=== PATIENT | female | born 1960 | race Caucasian/White ===

== ENCOUNTER → 2020-09-18 | Outpatient (CLI) | payer MEDICARE, MEDICAID ==
[~2020-09-18] MED LIST: ACET1TAB55 PO; CALC250T PO; CITR500T PO; D31000TA2 PO; DEPA500T OR; DEPA500T2 OR; LINZ290C PO; LORA1TAB4 PO; LOVE1INJ SC; MILKSUS10 PO; MIRA3350 PO; NO HOME MEDS; No Historical Meds; OMEP40CA97 PO; PAIN325T OR; PROT1TAB2 OR; ROBI1LIQ9 PO; VITMTA PO; VRAY4.5C PO
--- NOTE | 2020-09-21 09:31 | REP ---
INDICATION: R59.9 PALPABLE LYMPH NODE/R AXILLA MASS. COMPARISON: None. TECHNIQUE: Real-time sonographic evaluation of right axillary region performed. FINDINGS: Several nonenlarged lymph nodes are seen in the right axillary region which appear morphologically normal. All demonstrate a fatty hilum. There is no significant cortical thickening. The largest measures 8 x 6 x 6 mm. IMPRESSION: No suspicious lymphadenopathy identified in the right axilla. Several nonenlarged lymph nodes in this region are morphologically unremarkable. <Electronically signed by Teo Gipson > 09/21/20 0956
== END ==
LOC: M WHC 16:09
PROVIDERS: ATTEND Surgery
DX: R59.9 Enlarged lymph nodes, unspecified (principal); R22.31 Localized swelling, mass and lump, right upper limb

== ENCOUNTER 2020-09-22 08:52 | Day surgery (SDC) | payer MEDICARE, MEDICAID ==
[~2020-09-22] VITALS: Ht 162.6 cm; Wt 49.0 kg
[~2020-09-22 08:52] MED LIST changes: -ACET1TAB55 PO; -CALC250T PO; -CITR500T PO; -D31000TA2 PO; +EMLA CREAM 5GM TUBE (LIDOCAINE/PRILOCAINE) TOP PRN; +LIDOCAINE 1% MDV 20ML VIAL SQ PRN; -LINZ290C PO; -LORA1TAB4 PO; -MILKSUS10 PO; -MIRA3350 PO; -OMEP40CA97 PO; -ROBI1LIQ9 PO; -VITMTA PO; -VRAY4.5C PO
[2020-09-22] MEDS ORDERED: LIDOCAINE 1% SDV 30ML VIAL As Ordered ONE (09:28)
[2020-09-22] MEDS ORDERED: BUPIVACAINE HCL 0.25% 30ML VIAL As Ordered ONE (09:28)
[2020-09-22] MEDS ORDERED: MIRA3350 PO (09:31)
[2020-09-22] MEDS ORDERED: ACET1TAB55 PO (09:31)
[2020-09-22] MEDS ORDERED: OMEP40CA97 PO (09:31)
[2020-09-22] MEDS ORDERED: D31000TA2 PO (09:31)
[2020-09-22] MEDS ORDERED: ROBI1LIQ9 PO (09:31)
[2020-09-22] MEDS ORDERED: VRAY4.5C PO (09:31)
[2020-09-22] MEDS ORDERED: CITR500T PO (09:31)
[2020-09-22] MEDS ORDERED: MILKSUS10 PO (09:31)
[2020-09-22] MEDS ORDERED: CALC250T PO (09:31)
[2020-09-22] MEDS ORDERED: LINZ290C PO (09:31)
[2020-09-22] MEDS ORDERED: LORA1TAB4 PO (09:31)
[2020-09-22] MEDS ORDERED: VITMTA PO (09:31)
[2020-09-22] MEDS ORDERED: LR 1,000 ML IV ONE (10:00)
[2020-09-22] MEDS ORDERED: KETAMINE HCL 200 MG/20 ML VIAL As Ordered ONE (10:33)
[2020-09-22] MEDS ORDERED: MIDAZOLAM INJ 2MG/2ML VIAL (J2250 PER 1MG) As Ordered ONE (10:33)
[2020-09-22] MEDS ORDERED: propofoL 200 MG/20 ML VIAL As Ordered ONE ×2 (10:33→11:04)
[2020-09-22] MEDS ORDERED: ePHEDrine SULFATE 25 MG/5 ML(5MG/ML) SYRINGE As Ordered ONE (10:36)
[2020-09-22 12:14] VITALS: BP 124/61
--- NOTE | 2020-09-22 13:46 | REP ---
INDICATION: RIGHT BREAST BIOPSY. COMPARISON: None. TECHNIQUE: Sonographic guidance. FINDINGS: Ultrasound guidance is provided the Dr. Peguero performed ultrasound-guided needle biopsy procedure 7 o'clock in the right breast with clip placement and right axillary lymph node biopsy with clip placement. IMPRESSION: Procedural imaging. <Electronically signed by Yonatan West > 09/22/20 [id number]
--- NOTE | 2020-09-27 16:19 | ROOPDOC ---
[facility] Report Of Operation Report of Operation DATE OF PROCEDURE: 09/22/20 DIAGNOSIS: right breast suspicious lesion and right axillary suspicious lesion PROCEDURE: ultrasound guided biopsy of the right breast suspicious lesion and right axillary suspicious lesion with clips placement SURGEON: Brina Peguero BLOOD LOSS: minimal COMPLICATIONS: none Local anesthetic: Local anesthetic using 1% lidocaine and 0.25 % Marcaine 50/50 mix BIOPSY OF RIGHT BREAST Hydromark clip LOT [id number] Expiration 03/2023 SHAPE : 3 Bx device: BARD [id number] x10 cm LOT [id number] Expiration 06/2023 BIOPSY of RIGHT AXILLA Hydromark clip LOT [id number] Expiration 03/2023 SHAPE: 3 Bx device: TEMNO 18G x 20 cm LOT [id number] Expiration 07/2023 Informed consent was obtained from the brother and guardian, Edwardo Mckeon, since patient has intellectual disability. This was witnessed by my nurse, Kianna Nunes RN. The most common risk and possible complications including bleeding, hematoma, bruising, infection, injury to surrounding structures were explained. Edwardo expressed understanding. Decision was made to do the procedure in the operating room under moderate sedation due to patients intellectual disability and inability to stay still and comply with instructions. Patient was taken into operating room. Smooth induction of anesthesia was completed. She was kept on the bed in the supine position with the right arm battery mechanic over the head. Appropriate time out was done stating patients name, date of , and the procedure to be performed. The right beast and axilla were prepped and draped in the usual fashion. The ultrasound was used to confirm the location of the lesion in the right breast at 7:00 and in the right axilla. Procedure was started with the Right breast biopsy. Plain Lidocaine 1% and 8.4% sodium bicarbonate 10:1 mix was used to anesthetize the skin, the biopsy site and tissues along the anticipated biopsy tract. Small skin incision was made with blade number 11. BARD Marquee 14G cannula with introducer ([id number]) was inserted through the incision and advanced under the ultrasound guidance to position immediately adjacent to the lesion. Next, the introducer was removed and BARD Marquee 14G biopsy device was places in the cannula. Pre-biopsy imaging, and post-biopsy imaging were captured. Five good core biopsies were taken at various levels of the lesion. Specimen was placed in formaldehyde, labeled with appropriate biopsy site and patients name, and sent to pathology for evaluation. Next, the biopsy device was withdrawn and a clip introducer was inserted into the biopsy site via the cannula. SHAPE 3 Hydromark clip was deployed under sonographic guidance. Post-clip placement image was captured. Manual pressure over the biopsy cavity and tract was held after the clip introducer was withdrawn. No bleeding was noted upon removal of the pressure. At this time our attention was turned toward the right axilla. The ultrasound was used to confirm the location of enlarged lymph node with cortex measuring 5 mm. Plain Lidocaine 1% and 8.4% sodium bicarbonate 10:1 mix was used to anesthetize the skin, the biopsy site and tissues along the anticipated biopsy tract. Small skin incision was made with blade number 11. Temno 18G cannula with introducer was inserted through the incision and advanced under the ultrasound guidance to position immediately adjacent to the enlarged lymph node with 5 mm cortex. Next, the introducer was removed and Temno 18G biopsy device was places in the cannula. Pre-biopsy imaging, and post-biopsy imaging were captured. Five good core biopsies were taken at various levels of the lesion. Specimen was placed in formaldehyde, labeled with appropriate biopsy site and patients name, and sent to pathology for evaluation. Next, the biopsy device and cannula were withdrawn and a clip introducer was inserted into the position immediately adjacent to the biopsied lymph node. The SHAPE 3 Hydromark clip was deployed under sonographic guidance. Post-clip placement image was captured. Manual pressure over the biopsy cavity and tract was held after the clip introducer was withdrawn. No bleeding was noted upon removal of the pressure. Patient emerged from the anesthesia without any adverse issues. She tolerated procedure well. Discharge instructions were discussed with the patients aid and she expressed understanding. Post biopsy right breast mammogram is not done as [facility] does not have mammogram available in the hospital. I called Natalie rowland, second designated guardian, and updated her about procedure. I asked Natalie Mckeon to come into office with Miguelina on next Monday ay 4 pm to discuss results of biopsy. BRINA PEGUERO DO September 27, 2020 16:19
== END 2020-09-22 12:14 | disposition home or self-care (01) ==
LOC: M SDC 08:52
PROVIDERS: ATTEND Surgery
DX: C50.911 Malignant neoplasm of unspecified site of right female breast (principal); C77.3 Secondary and unspecified malignant neoplasm of axilla and upper limb lymph nodes; M81.0 Age-related osteoporosis without current pathological fracture; F70 Mild intellectual disabilities; K44.9 Diaphragmatic hernia without obstruction or gangrene; K21.9 Gastro-esophageal reflux disease without esophagitis; F31.9 Bipolar disorder, unspecified; F32.9 Major depressive disorder, single episode, unspecified; Z88.8 Allergy status to other drugs, medicaments and biological substances
CPT/HCPCS: 19083; 38505; 87798; 88305; J2250

== ENCOUNTER → 2020-10-19 | Outpatient (CLI) | payer MEDICARE, MEDICAID ==
[~2020-10-19] MED LIST changes: +ACET1TAB55 PO; +CALC250T PO; +CITR500T PO; +D31000TA2 PO; -EMLA CREAM 5GM TUBE (LIDOCAINE/PRILOCAINE) TOP PRN; +ISOVUE-370 76% 100ML VIAL As Ordered ONE; -LIDOCAINE 1% MDV 20ML VIAL SQ PRN; +LINZ290C PO; +LORA1TAB4 PO; +MILKSUS10 PO; +MIRA3350 PO; +OMEP40CA97 PO; +ROBI1LIQ9 PO; +VITMTA PO; +VRAY4.5C PO
--- NOTE | 2020-10-19 19:35 | REP ---
INDICATION: C50.911- MAL ELIAS OF RT BREAST, EVAL FOR METS COMPARISON: None. TECHNIQUE: Standard helical technique after the intravenous administration of 100 cc Isovue 370. FINDINGS: There is no mediastinal or hilar adenopathy. There are no pleural or pericardial effusions. The imaged osseous structures are within normal limits. Evaluation of the lung sheppard shows mild biapical pleuroparenchymal scarring. There are bibasilar curvilinear densities likely fibrotic and/or subsegmental atelectatic changes. There is no significant pulmonary nodule or spiculated lesion. IMPRESSION: There is evidence of mild biapical pleuroparenchymal scarring. There are changes seen in the lung bases as described above. Since there are no priors comparison and there is a history of carcinoma, I would recommend a short interval follow-up of 3 months . consideration should also be made in the acquisition of PET-CT in the initial staging of breast carcinoma if clinically relevant. <Electronically signed by Fracisco Hurtado > 10/19/201930
--- NOTE | 2020-10-19 19:40 | REP ---
INDICATION: C50.911- MAL ELIAS OF RT BREAST, EVAL FOR METS. COMPARISON: None. TECHNIQUE: Standard helical CT after the intravenous administration of 100 cc Isovue 370. No oral bowel preparatory contrast was administered prior to the exam. This causes exam limitations. FINDINGS: There are numerable mm sized and larger low-density lesions scattered throughout the liver the largest is in the lateral segment of the left lobe, measures approximately 2.2 cm, and has higher than water density Hounsfield unit readings. Other low-density lesions are too small for precise CT characterization. No peripherally enhancing hepatic lesions are identified. The gallbladder, spleen, pancreas, adrenal glands, and kidneys are within normal limits. The abdominal aorta and para-aortic regions are within normal limits. Limited evaluation of the bowel loops show no gross abnormalities. The mesenteries are within normal limits. There is no free fluid or free air. There is no evidence of a mass or adenopathy. Bone window technique throughout the examination shows no evidence of a definite lytic or blastic osseous lesion. IMPRESSION: Multiple indeterminate hepatic lesions as described above. Pre and post gadolinium enhanced MRI should be considered for further evaluation. Additionally, since are no priors comparison a short interval follow-up CT should also be considered along with PET-CT for initial staging if clinically relevant. <Electronically signed by Fracisco Hurtado > 10/19/201935
== END ==
LOC: M RAD 18:04
PROVIDERS: ATTEND Surgery
DX: C50.911 Malignant neoplasm of unspecified site of right female breast (principal)
CPT/HCPCS: 71260; 74177; Q9967

== ENCOUNTER → 2020-10-20 | Outpatient (CLI) | payer MEDICARE, MEDICAID ==
[~2020-10-20] MED LIST changes: -ISOVUE-370 76% 100ML VIAL As Ordered ONE
--- NOTE | 2020-10-20 15:25 | RADONC.CN ---
Radiation Oncology Hx/Consult Radiation Oncology Consult Date of Service: Oct 20, 2020 Pt Identifier Miguelina Mckeon is a 60 year old female with a history of intellectual disability, who has a recently diagnosed right breast cancer [id number] ER/DE+ HER2- Grade 2. She is seen at the request of Dr. Peguero prior to mastectomy for consideration of PMRT. Diagnosis/Treatment History Oncologic History 08/25/20 Screening mammogram with right lower outer breast lesion. Same day US negative 09/08/20 Diagnostic right mammogram showing 1.1 cm spiculated lesion in the right lower outer breast @ 7:00 09/18/20 Right axillary US for palpable LN with several small normal appearing LNs 09/22/20 Biopsy showing IDC ER/DE+ HER2- Grade 2 LN+ 10/19/20 CT CAP --Multiple low attenuating liver lesions, no additional significant findings Breast history Menses @ 13 Menopausal @ ? Interval History Here with supportive long-term MOTHER HELPER Lata. Miguelina's only complaint today is a headache and discomfort in the left (not right) breast. Per Lata, Miguelina takes ativan 1 mg TID and this keeps her still and calm without too much sedation. Prior to coming to her current long-term, Miguelina was in a shelter and on more strongly sedating psychotropic meds. Past Medical History: CP Asthma Arthritis Dysphagia HPL Peptic ulcer disease Past Surgical History: Appendectomy Colonoscopy EGD Gastric biopsy Family History: Unknown Social History: Non-smoker Does not drink alcohol Allergies / Meds Allergies: Coded Allergies: sertraline (Verified Adverse Reaction, Unknown, CONFUSION, 09/22/20) Home Meds Reported Medications Magnesium Hydroxide (Milk of Magnesia) 400 Mg/5 Ml Oral.susp, 30 ML PO Q3RD PRN for CONSTIPATION 09/22/20 Acetaminophen (Acetaminophen) 325 Mg Tablet, 650 MG PO Q4HP PRN for PAIN, TAB 09/22/20 Calcium Citrate (Calcium Citrate) 250 Mg Tablet, 1 TAB PO BID, TAB 09/22/20 Cholecalciferol (Vitamin D3) (Vitamin D3) 1,000 Unit Tablet, 2000 UNITS PO DAILY, TAB 09/22/20 Polyethylene Glycol 3350 (Miralax) 119 Gm Powder, 17 GM PO DAILYPRN PRN for CONSTIPATION, #1 BOTTLE dilute in 8 ounces of water or juice 09/22/20 Methylcellulose (Citrucel) 500 Mg Tablet, 1 TBS PO TID, TAB in 8 oz water 09/22/20 Omeprazole (Omeprazole) 40 Mg Capsule.dr, 1 CAP PO DAILY, CAP 09/22/20 Multivitamins (Thera M Plus Tablet) 1 Each Tablet, 1 TAB PO DAILY, TAB 09/22/20 Linaclotide (Linzess) 290 Mcg Capsule, 1 CAP PO DAILY, CAP 09/22/20 Cariprazine HCl (Vraylar) 4.5 Mg Capsule, 1 CAP PO DAILY, CAP 09/22/20 Lorazepam (Lorazepam) 1 Mg Tablet, 1 TAB PO QID, TAB 09/22/20 Review of Systems Constitutional: Reports: ROS Unabtainable (Intellectual disability) Vital Signs Ht 64" Wt 111 lbs BMI 19 T 98 P 78 RR 18 BP 112/69 O2 99% Pain 0 Fatigue 0 General Exam: Positive: Alert, No Acute Distress Eye Exam: Positive: PERRLA, EOMI ENT EXAM: Positive: Atraumatic Neck Exam: Positive: Supple Chest Exam: Positive: Clear to auscultation Heart Exam: Positive: Rate Normal Breast Exam: Positive: Symmetric Bilaterally; Negative: Lumps or Masses Abdomen Exam: Positive: Soft Extremity Exam: Negative: Edema Skin Exam: Positive: Nl turgor and temperature Diagnostic and Laboratory Diagnostic Review Radiologic images, relevant labs and pathology reports were personally reviewed and discussed with Ms. Mckeon. Assessment and Plan Impression Ms. Mckeon is a 60 year old female with a history of intellectual disability, who has a recently diagnosed right breast cancer [id number] ER/DE+ HER2- Grade 2. She is seen at the request of Dr. Peguero prior to mastectomy for consideration of PMRT. Stage [id number] right lower outer quadrant breast cancer stage IB ER/DE+ HER2- Grade 2 Performance Status ECOG 3 Plan We had an extensive discussion with Ms. Mckeon regarding the diagnosis at hand and available therapeutic options. I note there are several hypoattenuating lesions in the liver on her recent CT. I agree that these are indeterminate, but in this context I have low concern for visceral metastatic disease with the biology of HR receptor+ cancer detected by screening mammogram. I think these could be followed expectantly or a short-term [address] abdomen may be the next best test, given MRI and PET-CT take 30 minutes-1 hour to acquire. I will mention this to Dr. Peguero. Based on her calm demeanor in clinic today I discussed with her and her nurse that I think she would be appropriate for PMRT, which should be considered on the basis of a biopsy-proven clinically-detected axillary LN. I note that the CT chest recently done on 10/19/20 displays several normal appearing LN on the right, in this context of discordant biopsy results and imaging findings, I have heightened concern that additional nodes may prove positive. I leave the extent of axillary surgery to Dr. Arevalo to define. The standard for PMRT would be 50.4 Gy in 28 fractions to the right chest wall and a lower dose to the regional lymphatics, in 28 fractions. I would use VMAT and a FFF beam in order to minimize the [id number]. If there was a compelling reason manifest around the time of planning (such as poor tolerance for the treatment position), then we could consider a more hypofractionated course of PMRT, which is under active study on several large trials, and is supported by earlier phase studies with regard to safety and near-term efficacy. I explained that in case chemotherapy is indicated RT would follow chemotherapy. If only adjuvant endocrine therapy is indicated then RT would follow surgery generally, 3-4 weeks out at minimum. She does not have a surgical date as of yet. I will reach out to Dr. Peguero regarding this. I will follow up the post-operative pathology and ensure that she has follow up with me at the optimal time to begin RT planning. We discussed the logistics of receiving radiation therapy in detail including the need for a 1-time planning session. We discussed anticipated side effects of RT including fatigue, skin reaction, and contingent upon the extent of axillary surgery--lymphedema. After discussing the risks, benefits and alternatives to radiation therapy, Ms. Mckeon was amenable to pursuing radiotherapy after surgery, and chemotherapy if indicated. All questions were answered to the patient's satisfaction. We instructed the patient that if there were any questions,concerns or changes in clinical status in the interim to contact us. Recommendations Patient is a good candidate for PMRT as discussed above Final decisions contingent upon surgical pathology Will scheduled follow up at appropriate timing post-surgery If chemotherapy is indicated, will schedule follow up near completion of chemo Billing Statement Total time of [62] minutes was spent preparing for the visit [4], obtaining HPI [6], examining the patient [3], reviewing diagnostic tests [8], discussing management options [20], coordinating care [10], and writing this note [11]. RUPESH MANUEL MD Oct 20, 2020 15:25
== END ==
LOC: M ONCR 13:16
PROVIDERS: ATTEND General Practice
DX: C50.911 Malignant neoplasm of unspecified site of right female breast (principal); G80.9 Cerebral palsy, unspecified; J45.909 Unspecified asthma, uncomplicated; M12.9 Arthropathy, unspecified; E78.5 Hyperlipidemia, unspecified; F79 Unspecified intellectual disabilities; K76.89 Other specified diseases of liver; Z88.8 Allergy status to other drugs, medicaments and biological substances

== ENCOUNTER → 2020-11-02 | Outpatient (CLI) | payer MEDICARE, MEDICAID ==
[~2020-11-02] MED LIST changes: +ALPR1TAB3 PO; +LETR2.5T2 PO; +OMEP40CA4 PO; -OMEP40CA97 PO; +OXYC-517 PO
--- NOTE | 2020-11-03 09:29 | REP ---
INDICATION: RESTAGING INVASIVE CARCINOMA OF RT BRST C50.911. COMPARISON: Comparison is made with CT study of the chest abdomen and pelvis October 19, 2020. Comparison is made with recent breast imaging.. TECHNIQUE: Fifty minutes following the intravenous injection of a 8.94 mCi dose of F-18 FDG, three-dimensional PET scintigraphy is acquired from the skull base to the proximal thighs. Triplanar noncontrast CT scanning is acquired through the same anatomic range for attenuation correction, and image registration with scan parameters optimized to minimize radiation exposure to the patient. PET scintigraphy and CT datasets were fused and displayed on a workstation with multiplanar and projection display capability. FINDINGS: Head and neck soft tissues are unremarkable. There is no abnormal hypermetabolic uptake within the lung parenchyma, mediastinum, or in either lung hilus. There is mild skeletal muscle uptake surrounding the shoulders bilaterally. The biopsy-proven right breast malignancy is seen as a small spiculated mass in the inferolateral quadrant of the right breast. There is mildly increased uptake in this nodule compared to background breast parenchymal uptake. Maximum standard uptake value is only 1.99. There is no evidence of hypermetabolic travis uptake in either axilla. No enlarged lymph nodes are seen. No abnormal internal mammary travis uptake is seen on either side. No abnormal pleural uptake is seen. In the abdomen and pelvis, there is normal hepatic, splenic, gastrointestinal, and genitourinary FDG accumulation. No abnormal uptake is seen in any of the low-density areas in the liver suggesting that these may be cysts. No abnormal skeletal uptake is seen. IMPRESSION: Minimally increased uptake in the known right breast malignancy. No other abnormal hypermetabolic uptake. <Electronically signed by Yonatan West > 11/03/20 0033
== END ==
LOC: M PLARAD 08:54
PROVIDERS: ATTEND Surgery
DX: C50.911 Malignant neoplasm of unspecified site of right female breast (principal); Z17.0 Estrogen receptor positive status [ER+]; R91.8 Other nonspecific abnormal finding of lung field; R93.2 Abnormal findings on diagnostic imaging of liver and biliary tract
CPT/HCPCS: 78815; A9552

== ENCOUNTER → 2020-11-12 | Outpatient (CLI) | LOC: M LABSMTC 09:30 | PROVIDERS: ATTEND Anesthesiology | DX: Z01.812 Encounter for preprocedural laboratory examination (principal) ==

== ENCOUNTER 2020-11-17 10:03 | Observation (INO) | payer MEDICARE, MEDICAID ==
[~2020-11-17] VITALS: Ht 162.6 cm; Wt 52.2 kg
[~2020-11-17 10:03] MED LIST changes: -ALPR1TAB3 PO; -LETR2.5T2 PO; +LIDOCAINE 1% MDV 20ML VIAL SQ PRN; +NS 1,000 ML IV SCH; -OXYC-517 PO; +ceFAZolin SOD 1 GM in D5W MINI-BAG PLUS 50 ML IV ONE
[2020-11-17] MEDS ORDERED: LR 1,000 ML IV ONE (10:55)
[2020-11-17] MEDS: HEPARIN SOD (PORCINE) 5000UNITS/ML 1ML VIAL/SYRINGE SQ ONE ×2 (11:11→13:13)
[2020-11-17] MEDS ORDERED: MIDAZOLAM INJ 2MG/2ML VIAL (J2250 PER 1MG) As Ordered ONE (11:13)
[2020-11-17] MEDS ORDERED: fentaNYL 100 MCG/2 ML INJECTION (J3010) As Ordered ONE ×2 (11:14→15:59)
[2020-11-17] MEDS ORDERED: ISOSULFAN BLUE(LYMPHAZURIN) 1% 50MG/5ML VIAL As Ordered ONE (12:06)
[2020-11-17] MEDS ORDERED: BUPIVACAINE LIPOSOME/PF 1.3% 20ML VIAL (13.3MG/ML)(EXPAREL)(C9290 PER1MG) As Ordered ONE (12:06)
[2020-11-17] MEDS ORDERED: ACETAMINOPHEN 1000MG 100ML IV BTL (OFIRMEV) (J0131 PER 10MG) As Ordered ONE (13:21)
[2020-11-17] MEDS ORDERED: LIDOCAINE 2% 100MG/5ML SDV (FOR ANES.) As Ordered ONE (13:22)
[2020-11-17] MEDS ORDERED: dexameTHASONE 4 MG/ML 1ML VIAL (J1100 PER 1MG) As Ordered ONE (13:22)
[2020-11-17] MEDS ORDERED: propofoL 200 MG/20 ML VIAL As Ordered ONE (13:22)
[2020-11-17] MEDS ORDERED: ONDANSETRON 4MG/2ML VIAL As Ordered ONE (13:22)
[2020-11-17] MEDS ORDERED: SUGAMMADEX SODIUM 500 MG/5 ML VIAL (BRIDION) As Ordered ONE (13:23)
[2020-11-17] MEDS ORDERED: KETOROLAC 60MG 2ML VIAL As Ordered ONE (13:23)
[2020-11-17] MEDS ORDERED: PHENYLEPHRINE 10MG/ML 1ML VIAL (J2370 PER 1) As Ordered ONE (13:42)
[2020-11-17] MEDS ORDERED: SEVOFLURANE INHAL SOLN 250 ML BTL As Ordered ONE (15:51)
[2020-11-17] MEDS ORDERED: LR 1,000 ML IV SCH ×2 (16:35→16:40)
[2020-11-17] MEDS ORDERED: fentaNYL 100 MCG/2 ML INJECTION (J3010) IV PRN (16:35)
[2020-11-17] MEDS ORDERED: ONDANSETRON 4MG/2ML VIAL IV PRN (16:35)
[2020-11-17] MEDS ORDERED: MEPERIDINE INJ 25 MG/ML VIAL (J2175) IV PRN (16:35)
[2020-11-17] MEDS ORDERED: oxyCODONE 5MG TAB PO PRN ×2 (16:35→16:40)
[2020-11-17] MEDS ORDERED: MORPHINE 2 MG/ML 1ML VIAL (J2270) IV PRN (16:40)
[2020-11-17] MEDS ORDERED: MIRALAX *UNIT DOSE* 17GM PACKET PO PRN (17:00)
[2020-11-17] MEDS ORDERED: MOM 30ML SUSPENSION UDC PO PRN (17:00)
--- NOTE | 2020-11-17 17:14 | HPEPDOC ---
[facility] Medical History & Physical Date of Admission Nov 17, 2020 Date of Service: Nov 17, 2020 History and Physical Chief complaint: Who presented to [facility] for an elective simple right-sided mastectomy with lymph node dissection History of present illness: Patient is a 60-year-old female who presented to [facility] for elective right-sided simple mastectomy with the breast surgeon, patient received outpatient medical management primary care provider, Dr. Wallace Stacy. Hospital service was contacted postoperatively. Patient denies any shortness breath, palpitations, nausea, vomiting, abdominal pain, diarrhea, or urinary discomfort. Patient did report some pain on her chest wall. Patient is unable to provide any significant amount of details to her history as she has intellectual disability. Information was acquired through the medical record and verification from her nursing provider at the [facility], who was present in the waiting room. Past Medical History: Intellectual disability Recent diagnosis of invasive ductal carcinoma of R breast DLP Asthma Anxiety / Depression / Bipolar disorder Bilateral cataracts Degenerative joint disease GERD Past Surgical History: Appendectomy Colonoscopy 06/2016 EGD Allergies: See below Medications: See below Family History: - Reviewed and noncontributory Social History: - No documented smoking history - Denies recent travel or sick contacts - Lives at [facility] fdc Review of Systems: Unable to obtain full review of systems as patient hasnt intellectual disability Physical exam: - Vitals: BP [119/58], HR [97], RR [18], Sat [95%NC2L], Temp [98.4F] - General: Lying in bed, Can follow simple commands / answer simple questions, Awake / Alert - HEENT: NC, AT, PERRLA - CVS: RRR, +S1S2 - Lungs: Fair air entry bilaterally, No appreciable wheezing / rales / rhonchi - Abdomen: Soft, Non-distended, Non-tender - Extremities: No lower extremity edema, No calf tenderness - Neuro: No focal motor or sensory deficit - Skin: No visible rashes Labs: See below Imaging: See below EKG: See below Assessment and Plan: Recent diagnosis of invasive ductal carcinoma of R breast - Patient follows with medical oncology, Dr. Simmons - PET scan 11/03: Minimally increased uptake in the known right breast malignancy. No other abnormal hypermetabolic uptake. - s/p right-sided simple mastectomy, lymph node dissection and reverse axillary remapping with Dr. Peguero on 11/17/2020 - Pain control, activity and diet as per surgery Intellectual disability - Patient is a resident at the [facility] - Will have bedside sitter present DLP - Currently not on any medications Chronic Asthma - No evidence of exacerbation - Currently not on any inhaled therapy Anxiety / Depression / Bipolar disorder - Will resume Ativan Bilateral cataracts Degenerative joint disease - c/w Tylenol PRN GERD - Will resume Omeprazole DVT prophylaxis - Will start Heparin (after 10 pm) Vital Signs Vital Signs Date Time Temp Pulse Resp B/P (MAP) Pulse Ox O2 Delivery O2 Flow Rate FiO2 11/17/20 17:00 98.1 86 18 106/52 (70) 94 Room Air 11/17/20 16:45 2.0 Home Medications Scheduled Calcium Citrate (Calcium Citrate) 250 Mg Tablet, 1 TAB PO BID Cariprazine HCl (Vraylar) 4.5 Mg Capsule, 1 CAP PO DAILY Cholecalciferol (Vitamin D3) (Vitamin D3) 1,000 Unit Tablet, 2,000 UNITS PO DAILY Linaclotide (Linzess) 290 Mcg Capsule, 1 CAP PO DAILY Lorazepam (Lorazepam) 1 Mg Tablet, 1 TAB PO QID Methylcellulose (Citrucel) 500 Mg Tablet, 1 TBS PO TID in 8 oz water Multivitamins (Thera M Plus Tablet) 1 Each Tablet, 1 TAB PO DAILY Omeprazole (Omeprazole) 40 Mg Capsule.dr, 1 CAP PO DAILY Scheduled PRN Acetaminophen (Acetaminophen) 325 Mg Tablet, 650 MG PO Q4HP PRN for PAIN Magnesium Hydroxide (Milk of Magnesia) 400 Mg/5 Ml Oral.susp, 30 ML PO Q3RD PRN for CONSTIPATION Polyethylene Glycol 3350 (Miralax) 119 Gm Powder, 17 GM PO DAILYPRN PRN for CONSTIPATION dilute in 8 ounces of water or juice Allergies Coded Allergies: sertraline (Verified Adverse Reaction, Unknown, CONFUSION, 09/22/20) BENY SINGER MD Nov 17, 2020 17:14
[2020-11-17 17:45] VITALS: BP 116/62
[2020-11-17] MEDS: LORazepam 1 MG TAB PO SCH ×2 (17:54→21:34)
[2020-11-17 18:45] VITALS: BP 107/53
[2020-11-17 19:54] VITALS: BP 104/53
--- NOTE | 2020-11-17 20:09 | ROOPDOC ---
[facility] Report Of Operation Report of Operation DATE OF PROCEDURE: 11/17/20 PREPROCEDURE DIAGNOSES: right breast cancer involving right axillary lymph node POSTPROCEDURE DIAGNOSES: same PROCEDURE PERFORMED: Right breast mastectomy with right axillary dissection with reverse axillary mapping, right pectoralis and serratus muscle block, right medial pectoral nerve block SURGEON: Dr Brina Peguero ANESTHESIA: general ESTIMATED BLOOD LOSS: Approximately 100 mL. COMPLICATIONS: none FINDINGS: Right breast cancer site identified and marked with double stitch, Right axillary previously biopsied and positive lymph node was identified in axillary content and confirmed with intraop radiography DESCRIPTION OF PROCEDURE: INDICATIONS: Ms. Miguelina Mckeon is a 60 year old lady with intellectual disability who was found to have suspicious right breast mass on her mammogram. On exam she also was found to have a suspicious palpable lymph node. Sonography of this lymph n ode was read as normal. Biopsy of suspicious right breast lesion and suspicious right axillary lymph node had to be done with sedation due to patients inability to follow command. Pathology of both lesions came back ad IDC, ER+VT + Her2 -. Patient underwent systemic staging. Incidentalomas were found however there were no signs of distal disease. I discussed the surgical options with the guardians. Patient was evaluated by Medical Oncology and she was presented at tumor board. She was deemed not a good candidate for neoadjuvant chemotherapy and recommendation of breast surgery with axillary dissection was suggested. After discussing this option with the guardians, decision was made to proceed with right mastectomy without reconstruction, and right axillary dissection with reverse axillary mapping. Risks and possible complications of surgical procedure including bleeding, infection, lymphedema and injury to surrounding structures were explained to the guardians. Consent was obtained over the phone from the guardian and was witnessed by my nurse. Subcutaneous heparin 5000 units was given to patient prior to start of procedure. DETAILS: Patient was taken to the operating room and placed supine on the operating room table. Pillow was placed under her knees. Foam was placed under her heels. A sign in was called stating patients name, date of and the procedure to be done. Preoperative antibiotics were infused. Smooth induction of general anesthesia was done. Patients hands were extended on arm rests. Care was taken not to over extend patients arms. Cordova catheter was placed. Sequential compression devices were placed and assured to function correctly. Patients right breast and axilla were prepped and draped in the usual fashion. The right breast possible tumor extension was marked on the skin using ultrasound guidance. Biopsy clip was noted. Appropriate time out was done and patients name, date of , and the procedure to be done were confirmed. Procedure was started with right mastectomy. Thetransverse elliptical incision incorporating skin and nipple areolar complex was made with scalpel number 15. Subcutaneous flaps were developed using electrocautery dissection. Dissection was carried toward the inframammary fold inferiorly, toward sternum medially, toward inferior aspect of clavicle superiorly and toward the axilla laterally. Breast tissue was dissected from the muscle posteriorly and pectoralis fascia was taken with the specimen. The dissection was carried all the way to the [place] making sure that axilla is not entered prematurely. Breast specimen was marked for orientation with short single stitch marking superior edge of mastectomy and long single stitch marking lateral edge of mastectomy. Double stitch was placed at the site of previously identified cancer. The specimen was weighted and weight of 225 grams was reported. The specimen was then placed in formaldehyde, and passed to pathology. Mastectomy cavity was irrigated and hemostasis was achieved. Next, our attention was turned toward the right axilla. 3 cc of isosulfan blue was injected into right upper medial arm and massaged for 5 minutes. Axilla was accessed through open mastectomy incision. Clavipectoral fascia was opened along the lateral aspect of pectoralis muscle. Intraop Ultrasound was used to regulo the location of axillary vein and location of previously biopsied lymph node. Lateral border of pectoralis muscle was cleared from the adhesions. Axillary vein was also identified marking the superior extent of the axilla. A few blue lymphatic vessels were noted along the axillary vein and an effort was made to spare those. Next thoracodorsal nerve, artery and vein were identified at the axillary vein and were traced down until they turned toward the latissimus dorsi muscle. The nerve was functional which was confirmed throughout the case. Upon medial dissection along the serratus muscle, Long thoracic nerve was identified and encircled with the vessel loop for easier identification. The nerve was functional which was confirmed throughout the case. Next, Branches of intercostal sensory nerve were identified and an attempt was made to spare as many branches as possible. At this time, with all the critical structures identified, the axillary content between those structures (axillary vein, latissimus dorsi, serratus muscle pectoralis muscle, nerve bundles) was removed and sent to pathology for evaluation. Lymph nodes from axillary level 1 and 2 were removed. Previously biopsied lymph node was also identified and excised. The axillary content, including previously biopsied lymph node, was then placed on the grid and placed in [employer]imen Imaging System. The image confirmed presence of the clip in excised specimen. The specimen was marked with patients identifiers and called the right axillary content. Entire mastectomy cavity and axillary cavity were thoroughly irrigated and adequate hemostasis was achieved. Two 15 [place] drains were placed into the mastectomy cavity and into axilla through separate stab incisions and secured at the skin with stitches. Next, pectoralis and serratus plane blocks on the right side were also done with Exparel. Medial pectoral nerve was also identified and anesthetized with the Exparel under direct vision. Deep dermal sutures were placed with 2-0 Vicryl to approximate mastectomy site edges. Dermis was closed with 3-0 Vicryl. Skin was closed with 4-0 Monocryl. Surgical glue was applied to the top of the incision. Prineo skin closing system dressing was applied next to the incision. Surgical gauze was placed over the incision and surgical bra was placed. Final instruments and sponge count were correct. Patient emerged from general anesthesia without any problems. Cordova was removed. Patient tolerated procedure well and was taken to recovery unit in stable condition. BRINA PEGUERO DO Nov 17, 2020 20:09
[2020-11-17] MEDS: HEPARIN SOD (PORCINE) 5000UNITS/ML 1ML VIAL/SYRINGE SC SCH (21:17)
[2020-11-17] MEDS: ceFAZolin SOD 1 GM in D5W MINI-BAG PLUS 50 ML IV SCH (21:18)
[2020-11-17] MEDS: ACETAMINOPHEN TAB 650MG DOSE (2X325MG) PO PRN (21:18)
[2020-11-18 02:00] VITALS: BP 101/53
[2020-11-18] MEDS: HEPARIN SOD (PORCINE) 5000UNITS/ML 1ML VIAL/SYRINGE SC SCH (05:18)
[2020-11-18] MEDS: ceFAZolin SOD 1 GM in D5W MINI-BAG PLUS 50 ML IV SCH ×2 (05:18→12:11)
[2020-11-18 06:00] VITALS: BP 98/53
[2020-11-18 07:32] LABS: BASO % 0.3 % (0.0-1.0); EOS % 0.1 % (0.0-3.0); HEMATOCRIT 33.3 % (36.0-47.0); LYMPH # 2.2 10^3/uL (1.5-5.0); MEAN CORPUSCULAR HEMOGLOBIN 30.1 pg (27.0-33.0); MEAN CORPUSCULAR VOLUME 91.2 fl (80.0-96.0); MONO # 0.6 10^3/uL (0.0-0.8); MONO % 7.7 % (2.0-8.0); NEUTROPHILS # 5.1 10^3/uL (1.5-8.5); NEUTROPHILS % 63.8 % (36.0-66.0); PLATELET COUNT, AUTOMATED 314 10^3/uL (150-450); RED BLOOD COUNT 3.65 10^6/uL (4.00-5.40)
[2020-11-18 07:52] LABS: BLOOD UREA NITROGEN 12 MG/DL (7-18); CALCIUM LEVEL 8.8 MG/DL (8.8-10.2); CARBON DIOXIDE LEVEL 30 MEQ/L (21-32); CHLORIDE LEVEL 106 MEQ/L (98-107); CREATININE FOR GFR 0.67 MG/DL (0.55-1.30); GLOMERULAR FILTRATION RATE > 60.0 (>45); GLUCOSE, FASTING 92 MG/DL (70-100); MAGNESIUM LEVEL 2.2 MG/DL (1.8-2.4); POTASSIUM SERUM 4.1 MEQ/L (3.5-5.1); SODIUM LEVEL 140 MEQ/L (136-145)
[2020-11-18] MEDS ORDERED: VITAMIN D 1,000 INTERNATIONAL UNITS TABLET PO SCH (09:00)
[2020-11-18] MEDS ORDERED: MULTIVITAMINS/MINERALS THERAP 1 TAB PO SCH (09:00)
[2020-11-18] MEDS ORDERED: OMEPRAZOLE 20 MG CAP PO SCH (09:00)
[2020-11-18] MEDS ORDERED: OXYC-517 PO (09:12)
[2020-11-18 10:00] VITALS: BP 117/67
[2020-11-18] MEDS: LORazepam 1 MG TAB PO SCH ×2 (10:14→12:11)
[2020-11-18] MEDS: ACETAMINOPHEN TAB 650MG DOSE (2X325MG) PO PRN (10:26)
--- NOTE | 2020-11-18 10:28 | DS.PDOC ---
Discharge Summary General Date of Admission Nov 17, 2020 at 10:04 Date of Discharge 11/18/2020 Discharge Summary PROCEDURES PERFORMED DURING STAY: Right breast mastectomy with right axillary dissection with reverse axillary mapping with Dr. Peguero on 11/17/2020 ADMITTING DIAGNOSES / DISCHARGE DIAGNOSES: Recent diagnosis of invasive ductal carcinoma of R breast Intellectual disability DLP Chronic Asthma Anxiety / Depression / Bipolar disorder Bilateral cataracts Degenerative joint disease GERD DVT prophylaxis COMPLICATIONS/CHIEF COMPLAINT: Right Breast Cancer HISTORY OF PRESENT ILLNESS: Patient is a 60-year-old female who presented to [facility] for elective right-sided simple mastectomy with the breast surgeon, patient received outpatient medical management primary care provider, Dr. Wallace Stacy. Hospital service was contacted postoperatively. Patient was seen and examined at the bedside this morning. Denies any headache, cough, shortness of breath, did report some pain of her chest. Denied any lower extremity pain. HOSPITAL COURSE: Recent diagnosis of invasive ductal carcinoma of R breast - Patient follows with medical oncology, Dr. Simmons - PET scan 11/03: Minimally increased uptake in the known right breast malignancy. No other abnormal hypermetabolic uptake. - s/p right-sided simple mastectomy, lymph node dissection and reverse axillary remapping with Dr. Peguero on 11/17/2020 - Pain control, activity and diet as per surgery - Will have outpatient follow up with breast surgery and medical oncology within 5-7 days. Intellectual disability - Patient is a resident at the [facility] - Will have bedside sitter present DLP - Currently not on any medications Chronic Asthma - No evidence of exacerbation - Currently not on any inhaled therapy Anxiety / Depression / Bipolar disorder - c/w Ativan Bilateral cataracts Degenerative joint disease - c/w Tylenol PRN GERD - c/w Omeprazole DVT prophylaxis - c/w Heparin DISCHARGE MEDICATIONS: Please see below. ALLERGIES: Please see below. PHYSICAL EXAMINATION ON DISCHARGE: Vitals (See below) General: Lying in bed, appears comfortable, AAOx3 HEENT: NC, AT CVS: +S1S2 Lungs: Fair air entry b/l, no wheezing / rales / rhonchi Abdomen: Soft, ND, NT Extremities: No evidence of LE edema, - Calf tenderness LABORATORY DATA: Please see below. IMAGING: None ACTIVITY: [As tolerated]. DISCHARGE PLAN: Will have outpatient follow up with PCP, General surgery and Medical Oncology within 7 days Remain complaint with treatment plan and medications Return to the ER if you experience any problems DISPOSITION: Home with services DISCHARGE CONDITION: [Stable]. TIME SPENT ON DISCHARGE: 25 minutes Vital Signs/I&Os Vital Signs Date Time Temp Pulse Resp B/P (MAP) Pulse Ox O2 Delivery O2 Flow Rate FiO2 11/18/20 06:00 97.9 57 18 98/53 (68) 97 Room Air 11/17/20 16:45 2.0 I&O- Last 24 Hours up to 6 AM 11/18/20 05:59 Intake Total 1160 ml Output Total 1025 ml Balance 135 ml Laboratory Data Labs 24H Laboratory Tests 2 11/18/20 06:22: Immature Granulocyte % (Auto) 0.1, Neutrophils (%) (Auto) 63.8, Lymphocytes (%) (Auto) 28.0, Monocytes (%) (Auto) 7.7, Eosinophils (%) (Auto) 0.1, Basophils (%) (Auto) 0.3, Neutrophils # (Auto) 5.1, Lymphocytes # (Auto) 2.2, Monocytes # (Auto) 0.6, Eosinophils # (Auto) 0.0, Basophils # (Auto) 0.0, Nucleated Red Blood Cells % (auto) 0.0, Anion Gap 4L, Glomerular Filtration Rate > 60.0, Calcium Level 8.8, Magnesium Level 2.2 CBC/BMP Laboratory Tests 11/18/20 06:22 Discharge Medications Scheduled Calcium Citrate (Calcium Citrate) 250 Mg Tablet, 1 TAB PO BID, (Reported) Cariprazine HCl (Vraylar) 4.5 Mg Capsule, 1 CAP PO DAILY, (Reported) Cholecalciferol (Vitamin D3) (Vitamin D3) 1,000 Unit Tablet, 2,000 UNITS PO DAILY, (Reported) Linaclotide (Linzess) 290 Mcg Capsule, 1 CAP PO DAILY, (Reported) Lorazepam (Lorazepam) 1 Mg Tablet, 1 TAB PO QID, (Reported) Methylcellulose (Citrucel) 500 Mg Tablet, 1 TBS PO TID, (Reported) in 8 oz water Multivitamins (Thera M Plus Tablet) 1 Each Tablet, 1 TAB PO DAILY, (Reported) Omeprazole (Omeprazole) 40 Mg Capsule.dr, 1 CAP PO DAILY, (Reported) Scheduled PRN Acetaminophen (Acetaminophen) 325 Mg Tablet, 650 MG PO Q4HP PRN for PAIN, (Reported) Magnesium Hydroxide (Milk of Magnesia) 400 Mg/5 Ml Oral.susp, 30 ML PO Q3RD PRN for CONSTIPATION, (Reported) Oxycodone HCl (Oxycodone HCl) 5 Mg Tablet, 5 MG PO Q8HP PRN for MODERATE PAIN (PS 5-7) Polyethylene Glycol 3350 (Miralax) 119 Gm Powder, 17 GM PO DAILYPRN PRN for CONSTIPATION, (Reported) dilute in 8 ounces of water or juice Allergies Coded Allergies: sertraline (Verified Adverse Reaction, Unknown, CONFUSION, 09/22/20) BENY SINGER MD Nov 18, 2020 10:28
--- NOTE | 2020-11-18 11:46 | IPNPDOC ---
Subjective General Date Seen: Nov 18, 2020 (7 am) Subject Chief Complaint/History The patient is a 60-year-old female with intellectual disability who was diagnosed with right breast cancer involving right axillary lymph node. Patient was admitted after surgery yesterday (right mastectomy, right axillary lymph node dissection, reverse axillary mapping). She recovered well for surgery. Her pain is well tolerated. She was able to void. She tolerates food. She has to drains in the right lateral chest which drained serosanguineous fluid. Current Medications Current Medications Current Medications Medications (Trade) Dose Ordered Sig/Joaquin Route PRN Reason Start Time Stop Time Status Last Admin Dose Admin Acetaminophen (Tylenol Tab) 650 mg Q6H PRN PO MILD PAIN (PS 1-4) 11/17/20 16:40 11/18/20 10:26 Cefazolin Sodium 1 gm/Dextrose 50 ml @ 100 mls/hr Q8H IV 11/17/20 21:00 11/18/20 13:29 11/18/20 05:18 Fentanyl Citrate (Sublimaze) 25 mcg Q5MP PRN IV PAIN LEVEL 5-10 11/17/20 16:35 11/17/20 18:35 DC Heparin Sodium (Porcine) (Heparin) 5,000 units Q8H SC 11/17/20 22:00 11/18/20 05:18 Lactated Ringer's 1,000 ml @ 70 mls/hr [id number] IV 11/17/20 16:40 11/17/20 17:45 Lactated Ringer's 1,000 ml @ 100 mls/hr Q10H IV 11/17/20 16:35 11/17/20 18:35 DC 11/17/20 17:31 Lidocaine HCl (LIDOCAINE 1% MDV 20ml) 0.1 ml ONCE PRN SQ DISCOMFORT BEFORE IV START 11/17/20 06:00 11/17/20 16:31 DC Lorazepam (Ativan) 1 mg QID PO 11/17/20 17:00 11/18/20 10:14 Magnesium Hydroxide (Milk Of Magnesia) 30 ml Q72H PRN PO CONSTIPATION 11/17/20 17:00 Meperidine HCl (Demerol) 12.5 mg Q5MP PRN IV SHIVERING 11/17/20 16:35 11/17/20 18:35 DC Morphine Sulfate (Morphine Sulfate Inj) 1 mg Q4H PRN IV PAIN LEVEL 8-10 11/17/20 16:40 Multivitamins (Theragram-M) 1 tab DAILY PO 11/18/20 09:00 11/18/20 10:15 Omeprazole (PriLOSEC) 40 mg DAILY PO 11/18/20 09:00 11/18/20 10:15 Ondansetron HCl (ZOFRAN INJection) 4 mg Q4HP PRN IV NAUSEA OR VOMITING 11/17/20 16:35 11/17/20 18:35 DC Oxycodone HCl (Roxicodone, Oxyir) 5 mg ASDIRECTED PRN PO PAIN LEVEL 1-4 11/17/20 16:35 11/17/20 18:35 DC Oxycodone HCl (Roxicodone, Oxyir) 5 mg Q4HP PRN PO MODERATE PAIN (PS 5-7) 11/17/20 16:40 11/17/20 18:51 Polyethylene Glycol (Miralax) 1 pkt DAILYPRN PRN PO CONSTIPATION 11/17/20 17:00 Sodium Chloride 1,000 ml @ 15 mls/hr Q24H IV 11/17/20 08:15 11/17/20 16:31 DC Vitamin D (Vitamin D) 2,000 units DAILY PO 11/18/20 09:00 11/18/20 10:15 Allergies Coded Allergies: sertraline (Verified Adverse Reaction, Unknown, CONFUSION, 09/22/20) Objective Physical Examination Examination GENERAL APPEARANCE:Patient seen, laying in bed, awake, alert, comfortable, in no acute distress BREAST: Right breast is surgically absent. Incision of the right chest wall is well approximated. There is no drainage or erythema. Prineo dressing is in place. There are 2 CATALINA drains in the lateral chest with serosanguineous fluid. Drains were stripped this morning. There is no palpable hematoma at the mastectomy site. Flaps are viable. LUNGS: Patient is breathing comfortably on room air HEART: No tachycardia ABDOMEN: Abdomen is nondistended EXTREMITIES: There is no lymphedema of the right upper extremity Vital Signs Vital Signs Date Time Temp Pulse Resp B/P (MAP) Pulse Ox O2 Delivery O2 Flow Rate FiO2 11/18/20 10:00 99.3 94 18 117/67 (84) 95 Room Air 11/17/20 16:45 2.0 I&Os I&O- Last 24 Hours up to 6 AM 11/18/20 06:00 Intake Total 1160 ml Output Total 1025 ml Balance 135 ml Laboratory Data Labs 24H Laboratory Tests 2 11/18/20 06:22: Immature Granulocyte % (Auto) 0.1, Neutrophils (%) (Auto) 63.8, Lymphocytes (%) (Auto) 28.0, Monocytes (%) (Auto) 7.7, Eosinophils (%) (Auto) 0.1, Basophils (%) (Auto) 0.3, Neutrophils # (Auto) 5.1, Lymphocytes # (Auto) 2.2, Monocytes # (Auto) 0.6, Eosinophils # (Auto) 0.0, Basophils # (Auto) 0.0, Nucleated Red Blood Cells % (auto) 0.0, Anion Gap 4L, Glomerular Filtration Rate > 60.0, Calcium Level 8.8, Magnesium Level 2.2 CBC/BMP Laboratory Tests 11/18/20 06:22 Impression 60-year-old lady with intellectual disability and right breast cancer involving lymph nodes, status post right mastectomy, right axillary dissection with reverse axillary mapping POD 1. - Pain control, will sent home with narcotic pain meds as well. Please use Tylenol first - stop IV-stop IVF - Encourage by mouth hydration - Monitor drain output, records per 24 hour her drain. Drain teaching today her nursing staff - If patient seems to be tagging on the drain or pulling the drains please wrap that chest loosely with Bony wrap. Please don't put excessive pressure over mastectomy flaps - Keep the surgical bra until postoperative appointment - No IVs, blood pressure checks, lap draws in the right upper extremity as right axillary dissection was done and patient is at risk of lymphedema - Okay to send home from the surgical point of view as long as medical team clears patient for discharge. - I greatly appreciate medical team assistance in taking care of this patient - Patient will follow up with me in the office on November 23 at 11:30 AM - Please send patient home with my postop instructions regarding mastectomy Plan / VTE VTE Prophylaxis Ordered?: Yes BRINA DENIS DO Nov 18, 2020 11:46
== END 2020-11-18 13:30 | disposition home health service (06) ==
LOC: M SDC 10:03 → M ED INP 10:04 → M MS5PR 17:40
PROVIDERS: ADMIT Internal Medicine; ATTEND Internal Medicine
DX: C50.911 Malignant neoplasm of unspecified site of right female breast (principal); C77.3 Secondary and unspecified malignant neoplasm of axilla and upper limb lymph nodes; Z17.0 Estrogen receptor positive status [ER+]; E78.2 Mixed hyperlipidemia; F79 Unspecified intellectual disabilities; Z79.899 Other long term (current) drug therapy; Z88.8 Allergy status to other drugs, medicaments and biological substances; M85.88 Other specified disorders of bone density and structure, other site; F31.9 Bipolar disorder, unspecified; F32.9 Major depressive disorder, single episode, unspecified; F41.9 Anxiety disorder, unspecified; K21.9 Gastro-esophageal reflux disease without esophagitis
CPT/HCPCS: 19303; 36415; 38525; 64450; 80048; 83735; 85025; 86850; 86900; 86901; 88305; 88309; 96365; 96366; 96372; C9290; G0378; J0131; J0690; J1100; J1644; J1885; J2250; J2370; J2405; J3010; Q9968

== ENCOUNTER 2020-12-01 13:21 | Outpatient (RCR) | payer MEDICARE, MEDICAID ==
[~2020-12-01 13:21] MED LIST changes: -LIDOCAINE 1% MDV 20ML VIAL SQ PRN; -NS 1,000 ML IV SCH; +OXYC-517 PO; -ceFAZolin SOD 1 GM in D5W MINI-BAG PLUS 50 ML IV ONE
[2020-12-25] MEDS ORDERED: LETR2.5T2 PO (12:16)
[2021-03-09] MEDS ORDERED: LETR2.5T2 PO (13:03)
[2021-06-15] MEDS ORDERED: LETR2.5T2 PO (09:07)
== END 2020-12-05 | disposition still patient (30) ==
LOC: M PT 13:21
PROVIDERS: ATTEND Surgery
DX: C50.911 Malignant neoplasm of unspecified site of right female breast (principal)

== ENCOUNTER 2020-12-28 10:18 | Outpatient (RCR) | payer MEDICARE, MEDICAID ==
[~2020-12-28 10:18] MED LIST changes: +LETR2.5T2 PO
[2020-12-28] MEDS ORDERED: ALPR1TAB3 PO ×2 (11:08→11:10)
[2021-03-09] MEDS ORDERED: LETR2.5T2 PO (13:03)
== END 2021-01-05 ==
LOC: M ONCR 10:18
PROVIDERS: ATTEND General Practice
DX: C50.511 Malignant neoplasm of lower-outer quadrant of right female breast (principal)

== ENCOUNTER → 2021-02-04 | Outpatient (RCR) | payer MEDICARE, MEDICAID ==
[~2021-02-04] MED LIST changes: +ALPR1TAB3 PO
== END ==
LOC: M ONCR 01-06 14:55
PROVIDERS: ATTEND General Practice
DX: C50.511 Malignant neoplasm of lower-outer quadrant of right female breast (principal)

== ENCOUNTER 2021-02-16 09:51 | Outpatient (RCR) | payer MEDICARE, MEDICAID ==
[2021-03-09] MEDS ORDERED: LETR2.5T2 PO (13:03)
== END 2021-03-07 ==
LOC: M ONCR 09:51
PROVIDERS: ATTEND General Practice
DX: C50.511 Malignant neoplasm of lower-outer quadrant of right female breast (principal)

== ENCOUNTER → 2021-06-07 | Outpatient (CLI) | payer MEDICARE, MEDICAID | LOC: M ONCR 13:30 | PROVIDERS: ATTEND General Practice | DX: C50.511 Malignant neoplasm of lower-outer quadrant of right female breast (principal); F79 Unspecified intellectual disabilities; Z88.1 Allergy status to other antibiotic agents; Z79.899 Other long term (current) drug therapy ==

== ENCOUNTER → 2021-08-20 | Outpatient (CLI) | payer MEDICARE, MEDICAID ==
[~2021-08-20] MED LIST changes: -D31000TA2 PO; +VITA100093 PO
== END ==
LOC: M WHC 12:59
PROVIDERS: ATTEND Surgery
DX: Z12.31 Encounter for screening mammogram for malignant neoplasm of breast (principal); Z85.3 Personal history of malignant neoplasm of breast
CPT/HCPCS: 76642; 77065; G0279

== ENCOUNTER → 2021-12-01 | Outpatient (CLI) | payer MEDICARE, MEDICAID | LOC: M ONCR 13:38 | PROVIDERS: ATTEND General Practice | DX: C50.511 Malignant neoplasm of lower-outer quadrant of right female breast (principal); F79 Unspecified intellectual disabilities; Z79.811 Long term (current) use of aromatase inhibitors; Z79.899 Other long term (current) drug therapy; Z88.8 Allergy status to other drugs, medicaments and biological substances; Z90.11 Acquired absence of right breast and nipple; Z92.3 Personal history of irradiation ==

== ENCOUNTER → 2022-10-13 | Outpatient (CLI) | payer MEDICARE, MEDICAID ==
[~2022-10-13] MED LIST changes: +LORA1TAB23 PO; -LORA1TAB4 PO
== END ==
LOC: M WHC 08:56
PROVIDERS: ATTEND Nurse Practitioner Women's Health
DX: C50.811 Malignant neoplasm of overlapping sites of right female breast (principal)

== ENCOUNTER → 2022-12-02 | Outpatient (CLI) | payer MEDICARE, MEDICAID | LOC: M ONCR 13:24 | PROVIDERS: ATTEND General Practice | DX: Z08 Encounter for follow-up examination after completed treatment for malignant neoplasm (principal); Z85.3 Personal history of malignant neoplasm of breast; F79 Unspecified intellectual disabilities; Z71.2 Person consulting for explanation of examination or test findings; Z79.811 Long term (current) use of aromatase inhibitors; Z79.899 Other long term (current) drug therapy; Z88.8 Allergy status to other drugs, medicaments and biological substances; Z90.11 Acquired absence of right breast and nipple; Z92.3 Personal history of irradiation ==

== ENCOUNTER → 2023-03-14 | Outpatient (CLI) | payer MEDICARE, MEDICAID | LOC: M WHC 09:45 | PROVIDERS: ATTEND Nurse Practitioner | DX: Z13.820 Encounter for screening for osteoporosis (principal); C50.919 Malignant neoplasm of unspecified site of unspecified female breast; M85.88 Other specified disorders of bone density and structure, other site ==

== ENCOUNTER → 2023-10-17 | Outpatient (CLI) | payer MEDICARE, MEDICAID ==
[~2023-10-17] MED LIST changes: +ENSU1LIQ PO; +SIMV20TA22
== END ==
LOC: M WHC 09:45
PROVIDERS: ATTEND Nurse Practitioner Women's Health
DX: Z12.31 Encounter for screening mammogram for malignant neoplasm of breast (principal); Z85.3 Personal history of malignant neoplasm of breast
CPT/HCPCS: 77065; G0279

== ENCOUNTER → 2023-12-11 | Outpatient (CLI) | payer MEDICARE, MEDICAID | LOC: M ONCR 09:53 | PROVIDERS: ATTEND General Practice | DX: Z08 Encounter for follow-up examination after completed treatment for malignant neoplasm (principal); Z85.3 Personal history of malignant neoplasm of breast; Z79.811 Long term (current) use of aromatase inhibitors; Z79.899 Other long term (current) drug therapy; Z88.8 Allergy status to other drugs, medicaments and biological substances; Z90.11 Acquired absence of right breast and nipple; Z92.3 Personal history of irradiation ==

== ENCOUNTER → 2024-12-10 | Outpatient (CLI) | payer MEDICARE, MEDICAID ==
[~2024-12-10] MED LIST changes: +FAMO40TA3 PO; +VRAY1.5C
== END ==
LOC: M ONCR 09:51
PROVIDERS: ATTEND General Practice
DX: Z08 Encounter for follow-up examination after completed treatment for malignant neoplasm (principal); Z85.3 Personal history of malignant neoplasm of breast; Z90.11 Acquired absence of right breast and nipple; Z92.3 Personal history of irradiation; Z88.8 Allergy status to other drugs, medicaments and biological substances; Z79.811 Long term (current) use of aromatase inhibitors; Z79.899 Other long term (current) drug therapy